=== PATIENT | female | born 1980 | race Caucasian/White ===

== ENCOUNTER 2020-10-01 02:30 | Emergency (ER) ==
[2020-10-01 02:53] VITALS: BP 127/60
== END 2020-10-01 02:55 | disposition left against medical advice (07) ==
LOC: ER 02:30
DX: Z53.21 Procedure and treatment not carried out due to patient leaving prior to being seen by health care provider (principal); T14.8XXA Other injury of unspecified body region, initial encounter; W57.XXXA Bitten or stung by nonvenomous insect and other nonvenomous arthropods, initial encounter